=== PATIENT | male | born 1980 | race Caucasian/White ===

== ENCOUNTER 2018-09-19 15:26 | Emergency (ER) | payer OTHER ==
[~2018-09-19] VITALS: Ht 188 cm; Wt 95.2 kg
[2018-09-19 15:32] VITALS: BP 110/80
== END 2018-09-19 16:44 | disposition home or self-care (01) ==
LOC: ED 16:38
DX: S43.422A Sprain of left rotator cuff capsule, initial encounter (principal); V49.09XA Driver injured in collision with other motor vehicles in nontraffic accident, initial encounter; Y93.89 Activity, other specified; Y92.89 Other specified places as the place of occurrence of the external cause; Y99.8 Other external cause status
CPT/HCPCS: 99283

== ENCOUNTER 2020-09-24 16:37 | Emergency (ER) | payer OTHER ==
[~2020-09-24] VITALS: Ht 190.5 cm; Wt 109.9 kg
[2020-09-24 16:38] VITALS: BP 129/92
--- NOTE | 2020-09-24 16:58 | NUR ---
at bedside for exam.
--- NOTE | 2020-09-24 17:05 | NUR ---
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
[2020-09-24] MEDS ORDERED: FAMOTIDINE 20 MG TABLET ONE (17:13)
--- NOTE | 2020-09-24 17:25 | NUR ---
PO meds given and education on allergic reactions/anaphylaxis given at this time.
[2020-09-24] MEDS ORDERED: FAMOTIDINE 20 MG TABLET PO ONE (17:30)
[2020-09-24 17:48] LABS: BASOPHILS % (AUTO) 0 % (0-1); EOSINOPHILS % (AUTO) 1 % (1-7); LYMPHOCYTES % (AUTO) 30 % (22-44); MEAN CORPUSCULAR HEMOGLOBIN 30.1 pg (27.5-34.5); MEAN CORPUSCULAR HGB CONC 34.1 g/dL (33.2-36.2); MEAN PLATELET VOLUME 7.9 fL (7.4-10.4); MONOCYTES % (AUTO) 7 % (2-9); NEUTROPHILS % (AUTO) 63 % (42-75); PLATELET COUNT 211 x10^3/uL (130-400); RED BLOOD COUNT 5.31 x10^6/uL (4.38-5.82); RED CELL DISTRIBUTION WIDTH 12.6 % (9.4-14.8)
[2020-09-24 17:50] LABS: ALBUMIN 3.5 g/dL (3.4-5.0); ANION GAP 7 mmol/L (5-15); CALCIUM 9.4 mg/dL (8.5-10.1); CHLORIDE 109 mmol/L (98-107)
[2020-09-24 17:53] LABS: TROPONIN I < 0.015 ng/mL (0.000-0.045)
== END 2020-09-24 17:49 | disposition home or self-care (01) ==
LOC: ED 17:20
DX: L50.0 Allergic urticaria (principal); T63.461A Toxic effect of venom of wasps, accidental (unintentional), initial encounter; R07.9 Chest pain, unspecified; R00.0 Tachycardia, unspecified; F17.200 Nicotine dependence, unspecified, uncomplicated; Y92.89 Other specified places as the place of occurrence of the external cause
CPT/HCPCS: 36415; 71045; 80048; 82040; 84484; 85025; 93005; 99285; J7512; Q0177